=== PATIENT | male | born 1965 | race Caucasian/White ===

== ENCOUNTER 2016-08-23 09:46 | Outpatient (CLI) | payer MEDICARE, OTHER ==
--- NOTE | 2016-08-23 11:54 | ULT ---
SOFT TISSUE ULTRASOUND OF THE NECK CLINICAL HISTORY: Neck mass for six months. COMPARISON: No prior imaging for comparison. FINDINGS: At the site of concern, posteriorly, within the neck, there is an oval, hypoechoic mass demonstratin g a diameter of approximately 3 cm. IMPRESSION: Hypoechoic mass accounting for palpable area of concern. Recommend dedicated and pre and post contrast neck CT for further evaluation. POS: [facility]
== END 2016-08-23 09:47 | disposition home or self-care (01) ==
LOC: NAV ULT 09:46
PROVIDERS: ATTEND Nurse Practitioner Family
DX: R22.1 Localized swelling, mass and lump, neck (principal)
CPT/HCPCS: 76536

== ENCOUNTER 2016-09-26 08:00 | Outpatient (CLI) | payer MEDICARE, OTHER ==
--- NOTE | 2016-09-26 10:58 | ULT ---
ULTRASOUND ABDOMEN COMPLETE: HISTORY: A 50-year-old male with elevated liver enzymes R79.89. TECHNIQUE: Smith-scale ultrasound evaluation of the liver, gallbladder, spleen, pancreas, common bile duct, kidn eys, abdominal aorta, and inferior vena cava (IVC). FINDINGS: The gallbladder has normal wall thickness and has no evidence of gallstones or sludge. The hepatic echogenicity is diffusely increased, consistent with fatty liver. The kidneys have normal echogenic ity, and there is no hydronephrosis. There is no splenomegaly. There is no abdominal aortic aneury sm. No free fluid is identified. The inferior vena cava is visualized. The pancreas is visualized , although ultrasound is relatively insensitive for pancreatic pathology compared to CT and MRI. The re is no biliary dilation. The common duct caliber is 6 mm. IMPRESSION: 1) Hepatic steatosis. 2) Otherwise negative. corina [] POS: [facility]
== END 2016-09-26 08:01 | disposition home or self-care (01) ==
LOC: NAV ULT 08:00
PROVIDERS: ATTEND Nurse Practitioner Family
DX: R79.89 Other specified abnormal findings of blood chemistry (principal); K76.0 Fatty (change of) liver, not elsewhere classified
CPT/HCPCS: 76700

== ENCOUNTER 2016-11-26 07:58 | Emergency (ER) | payer MEDICARE, MEDICAID ==
[2016-11-26] MEDS ORDERED: Ibuprofen 200 MG TAB ONE (09:00)
--- NOTE | 2016-11-26 09:12 | RAD ---
4 VIEWS LEFT KNEE: Date: 11/26/16 HISTORY: Twisted knee yesterday while playing football. Patient now has left knee pain and swelling. FINDINGS: There is a moderate sized joint effusion. There is mild edema in the region of Hoffa's fat pad. On t he lateral projection, which is slightly obtained in obliquity, there is suggestion of cortical irre gularity seen just posterior to the region of the tibial spines and an avulsion injury in this regio n could not be entirely excluded. There is also question of osseous density just medial to the media l tibial spine on the external oblique view of the left knee. Avulsion injury in this region cannot be entirely excluded and CT scan of the left knee is recommended for further evaluation. No joint sp sujata narrowing is seen and no additional fracture is seen. No dislocation is present. There is a scle rotic density seen in the lateral aspect of the proximal tibial metaphysis which probably represents a prominent bone island. IMPRESSION: 1. Cortical irregularity posterior tibial spine seen on the lateral view. This may represent a smal l avulsion fracture, but CT scan of left knee is recommended for further evaluation. 2. Moderate size joint effusion. POS: [facility] [place]
== END 2016-11-26 09:00 | disposition home or self-care (01) ==
LOC: NAV ERS 07:58
DX: S83.92XA Sprain of unspecified site of left knee, initial encounter (principal); W18.30XA Fall on same level, unspecified, initial encounter; Y93.61 Activity, american tackle football

== ENCOUNTER 2019-08-04 00:16 | Emergency (ER) | payer MEDICARE, OTHER ==
[2019-08-04] MEDS ORDERED: Enoxaparin Sodium 80 MG/0.8 ML SYRINGE ONE (00:37)
[2019-08-04] MEDS ORDERED: Aspirin Chewable 81 MG TAB ONE (00:37)
[2019-08-04] MEDS ORDERED: Morphine 4 MG/ML VIAL ONE (00:42)
[2019-08-04] MEDS ORDERED: Ondansetron PF 4 MG/2 ML Vial ONE (00:42)
[2019-08-04] MEDS ORDERED: Lorazepam 2 MG/ML VIAL ONE (00:45)
[2019-08-04 00:50] LABS: Band 4 % (5-11); Eosinophils 6 % (0-10); Hemoglobin 15.3 g/dL (14.0-18.0); Lymphocytes 46 % (21-51); MDiff Complete? YES; Mean Corpuscular HGB CONC 31.5 g/dL (32.0-36.0); Mean Corpuscular Hemoglobin 27.5 pg (27.0-31.0); Mean Corpuscular Volume 87.3 fL (78.0-98.0); Mean Platelet Volume 7.1 fL (7.4-10.4); Monocytes 4 % (0-10); Neutrophil 34 % (42-75); Platelet Count 329 thou/uL (130-400); Platelet Morphology Comment Appears Adequate; RBC Distribution Width 12.1 % (11.5-14.5); RBC Morphology Normal; Reactive Lymphocytes 4 % (0-10); Red Blood Cell (RBC) Count 5.57 mill/uL (4.70-6.10); White Blood Cell (WBC) Count 13.2 thou/uL (4.8-10.8)
[2019-08-04 01:01] LABS: ALT (SGPT) 41 U/L (8-55); AST (SGOT) 39 U/L (5-34); Albumin 4.9 g/dL (3.5-5.0); Alkaline Phosphatase 79 U/L (40-110); Anion Gap 19 mmol/L (10-20); BUN (Urea Nitrogen) 16 mg/dL (8.4-25.7); Bilirubin, Total 0.4 mg/dL (0.2-1.2); Calc. Creatinine Clearance 0 mL/min (70-130); Calcium 9.2 mg/dL (7.8-10.44); Carbon Dioxide 19 mmol/L (22-29); Chloride 100 mmol/L (98-107); Estimated GFR-MDRD 54; Globulin 3.8 g/dL (2.4-3.5); Glucose 153 mg/dL (70-105); Potassium 4.3 mmol/L (3.5-5.1); Protein, Total 8.7 g/dL (6.0-8.3); Sodium 134 mmol/L (136-145)
[2019-08-04 01:21] LABS: INR-International Normal Ratio 0.9; PTT 27.4 sec (22.9-36.1); Prothrombin Time 11.9 sec (12.0-14.7)
[2019-08-04] MEDS ORDERED: Tenecteplase 50 MG - STEMI KIT ONE (06:23)
[2019-08-04] MEDS ORDERED: EPINEPHrine 1 MG/10 ML Abboject SYRINGE ONE (09:00)
[2019-08-04] MEDS ORDERED: DOPamine/D5W 400 mg/250 ml PREMIX ONE (09:00)
== END 2019-08-04 01:53 | disposition short-term general hospital (02) ==
LOC: NAV ERS 00:16
DX: I21.3 ST elevation (STEMI) myocardial infarction of unspecified site (principal); R11.2 Nausea with vomiting, unspecified; R56.9 Unspecified convulsions; I10 Essential (primary) hypertension; Z79.899 Other long term (current) drug therapy
CPT/HCPCS: 31500; 36415; 51702; 80053; 84484; 85025; 85610; 85730; 92950; 93005; 94760; 96361; 96365; 96372; 96374; 96375; J0171; J1265; J1644; J1650; J2060; J2270; J2405; J3101

== ENCOUNTER 2024-01-28 10:15 | Emergency (ER) | payer MEDICARE, MEDICAID ==
[2024-01-28] MEDS ORDERED: Sodium Bicarb 50 MEQ/50 ML Abboject 8.4% SYRINGE ONE (10:30)
[2024-01-28] MEDS ORDERED: Amiodarone 150 MG/3 ML VIAL ONE (10:30)
[2024-01-28] MEDS ORDERED: EPINEPHrine 1 MG/10 ML Abboject SYRINGE ONE (10:30)
[2024-01-28] MEDS ORDERED: Calcium Chloride 1 GM/10 ML Abboject SYRINGE ONE (10:30)
[2024-01-28 10:44] LABS: %Eosinophils 2.6 % (0.0-10.0); %Lymphocytes 61.2 % (21.0-51.0); %Monocytes 7.8 % (0.0-10.0); %Neutrophils 25.7 % (42.0-75.0); Hematocrit 45.9 % (42.0-52.0); Hemoglobin 14.3 g/dL (14.0-18.0); Manual Diff?? NO; Mean Corpuscular HGB CONC 31.2 g/dL (32.0-36.0); Mean Corpuscular Hemoglobin 27.7 pg (27.0-31.0); Mean Corpuscular Volume 88.6 fl (78.0-98.0); Mean Platelet Volume 8.3 fL (7.4-10.4); Platelet Count 73 10x3/uL (130-400); RBC Distribution Width 12.5 % (11.5-14.5); Red Blood Cell (RBC) Count 5.18 mill/uL (4.70-6.10); White Blood Cell (WBC) Count 12.3 10x3/uL (4.8-10.8)
[2024-01-28 10:45] LABS: #Basophils 0.3 thou/uL (0.0-0.2); #Eosinophils 0.3 thou/uL (0.0-0.7); #Lymphocytes 7.5 thou/uL (1.20-3.40); #Neutrophils 3.2 thou/uL (1.40-6.50); %Basophils 2.7 % (0.0-1.0)
[2024-01-28 10:52] LABS: Bilirubin Negative (Negative); Blood, Urine Trace (Negative); Glucose, Urine (Dipstick) >=1000 mg/dL (Negative); Ketone, Urine Negative (Negative); Leukocyte Negative (Negative); Nitrite Negative (Negative); Protein, Urine (Dipstick) > or equal to 300 mg/dL (Neg-Trace); Specific Gravity, Urine 1.025 (1.005-1.030); Urobilinogen 0.2 mg/dL (Less than 2)
[2024-01-28 10:53] LABS: Clarity Cloudy (Clear)
[2024-01-28 10:53] LABS: INR-International Normal Ratio 1.5; Prothrombin Time 17.8 sec (12.0-14.7)
[2024-01-28 10:54] LABS: RBC/HPF 0-3 HPF (0-3)
[2024-01-28 10:55] LABS: Sperm/HPF 4+ HPF (None Seen); WBC/HPF 0-3 HPF (0-3)
[2024-01-28 10:58] LABS: Glucose 365 mg/dL (70-105)
[2024-01-28 10:59] LABS: Amphetamine Not Detected (NotDetected); Barbiturates Screen Not Detected (NotDetected); Benzodiazepine Screen Not Detected (NotDetected); Cocaine Metabolite Screen Detected (NotDetected); Methadone Not Detected (NotDetected); Methamphetamine Not Detected (NotDetected); Opiate Screen Not Detected (NotDetected); Oxycodone Screen Not Detected (NotDetected); Phencyclidine (PCP) Not Detected (NotDetected); THC/Cannabinoid Screen Not Detected (NotDetected); Tricyclic Screen Not Detected (NotDetected)
[2024-01-28 11:02] LABS: Troponin I 0.182 ng/mL (< 0.028)
[2024-01-28 11:03] LABS: ALT (SGPT) 615 U/L (8-55); AST (SGOT) 480 U/L (5-34); Alkaline Phosphatase 69 U/L (40-110); Anion Gap 35 mmol/L (10-20); BUN (Urea Nitrogen) 19 mg/dL (8.4-25.7); Bilirubin, Total 0.3 mg/dL (0.2-1.2); CK (CPK) 257 U/L (30-200); Calc. Creatinine Clearance 0 mL/min (70-130); Calcium 9.8 mg/dL (7.8-10.44); Carbon Dioxide 17 mmol/L (22-29); Chloride 99 mmol/L (98-107); Estimated GFR 40; Globulin 2.4 g/dL (2.4-3.5); Potassium 3.6 mmol/L (3.5-5.1); Protein, Total 5.4 g/dL (6.0-8.3); Sodium 147 mmol/L (136-145)
[2024-01-28] MEDS ORDERED: Artificial Tear Ophth Sol 15 ML BOT ONE (11:12)
[2024-01-28 11:19] LABS: D-Dimer Test Greater than 20.00 mcg/mL (0.27-0.43)
[2024-01-28] MEDS ORDERED: Dextrose 5% in Water 250 ML ONE (16:55)
== END 2024-01-28 14:14 | disposition expired ==
LOC: NAV ERS 10:15
DX: I46.9 Cardiac arrest, cause unspecified (principal); I25.2 Old myocardial infarction; I25.10 Atherosclerotic heart disease of native coronary artery without angina pectoris
CPT/HCPCS: 36416; 71045; 80053; 80306; 81001; 82550; 84484; 85025; 85379; 85610; 85730; 92950; J0171; J0282; J7070